=== PATIENT | female | born 1980 ===

== ENCOUNTER 2016-11-11 10:04 | Emergency (ER) | payer OTHER ==
[2016-11-11 10:04] VITALS: BMI 34.9
[2016-11-11 10:17] VITALS: BP 117/81; PULSE 83; RESP 19; TEMP 98.3; O2SAT 100
--- NOTE | 2016-11-11 11:03 | C.PDOC ---
History Of Present Illness 36 Y/O FEMALE C/O ABSCESS TO LEFT ARMPIT FOR 1 WEEK. PT REPORTS INCREASED SWELLING AND REDNESS. DENIES DISCHARGE OR FEVER. PT NOTES SHE HAS HAD MULTIPLE ABSCESSES ON HER BODY IN THE LAST SEVERAL MONTHS. EXAM SKIN: ABSCESS ANTERIOR TO LEFT AXILLA WITH SOME LOCAL CELLULITIS. REM NEG Time Seen by Provider: 11/11/16 10:57 Chief Complaint (Nursing): Abnormal Skin Integrity History Per: Patient History/Exam Limitations: no limitations Onset/Duration Of Symptoms: Days Current Symptoms Are (Timing): Still Present Quality Of Symptoms: Painful, Swollen. denies: Draining Recent travel outside of the [place]: No Past Medical History Reviewed: Historical Data, Nursing Documentation, Vital Signs Vital Signs: Last Vital Signs Temp 98.3 F 11/11/16 10:16 Pulse 83 11/11/16 10:16 Resp 19 11/11/16 10:16 BP 117/81 11/11/16 10:16 Pulse Ox 100 11/11/16 12:00 - Medical History PMH: No Chronic Diseases Family History: States: Unknown Family Hx - Social History Hx Alcohol Use: No Hx Substance Use: No - Immunization History Hx Tetanus Toxoid Vaccination: Yes Hx Influenza Vaccination: Yes Hx Pneumococcal Vaccination: Yes Review Of Systems Except As Marked, All Systems Reviewed And Found Negative. Constitutional: Negative for: Fever, Chills Skin: Positive for: Other (ABSCESS LEFT ARMPIT). Negative for: Rash Neurological: Negative for: Weakness, Numbness Physical Exam - Physical Exam Appears: Non-toxic, No Acute Distress Skin: Warm, Dry, Other (ABSCESS, ANTERIOR TO LEFT AXILLA WITH SOME LOCAL CELLULITIS. ) Head: Atraumatic, Normacephalic Chest: Symmetrical Cardiovascular: Rhythm Regular Respiratory: Normal Breath Sounds, No Rales, No Rhonchi, No Wheezing Gastrointestinal/Abdominal: Soft, No Tenderness Back: Normal Inspection Extremity: Normal ROM, Capillary Refill (< 2 SEC.) Neurological/Psych: Oriented x3, Normal Speech, Normal Cognition ED Course And Treatment O2 Sat by Pulse Oximetry: 100 (RA) Pulse Ox Interpretation: Normal - Incision & Drainage Of Abscess Anesthesia: Lidocaine 2%, With Epi Prep Used: Betadine Procedure: Incised W/Scalpel Blade#: (11), Drained Pus, Probed To Break Up Loculations, Packed W/Gauze Progress - Re-Evaluation Re-evaluation Note: 11/11/16 11:59 I&D PERFORMED BY ME. PT TOLERATED PROCEDURE WELL. STERILE DRESSING APPLIED. PT ADVIESD ON WOUND CARE AND INSTRUCTED TO FU WITH CLINIC/PMD FOR FURTHER EVALUATION. Disposition Counseled Patient/Family Regarding: Diagnosis, Need For Followup, Rx Given - Disposition Referrals: [facility] [Outside] [facility] [Outside] Disposition: HOME/ ROUTINE Disposition Time: 11:53 Condition: IMPROVED Additional Instructions: Retorno de 2 pablo para la retirada del empaque, reevalacin de la herida, posible reempaque de heridas Prescriptions: Sulfamethoxazole/Trimethoprim [Bactrim DS 800 mg-160 mg] 1 tab PO BID #14 tab Ibuprofen [Motrin] 600 mg PO Q6 #30 tab Instructions: Abscess Incision and Drainage (ED) Print Language: GUATEMALAN - Clinical Impression Clinical Impression: Abscess, Cellulitis - Scribe Statement The provider has reviewed the documentation as recorded by the Chi Bowers Provider Attestation: All medical record entries made by the Chi were at my direction and personally dictated by me. I have reviewed the chart and agree that the record accurately reflects my personal performance of the history, physical exam, medical decision making, and the department course for this patient. I have also personally directed, reviewed, and agree with the discharge instructions and disposition.
[2016-11-11] MEDS ORDERED: Lidocaine 2% Inj (20ml) INFIL ONE (11:19)
[2016-11-11] MEDS ORDERED: Lidocaine 2% Inj (20ml) ONE (11:25)
[2016-11-11] MEDS ORDERED: Lidocaine 2% w Epi 1:100,000 Inj IJ ONE (11:31)
[2016-11-11] MEDS ORDERED: Tmp-Smz 800 mg-160 mg DS Tab PO STA (11:55)
[2016-11-11] MEDS ORDERED: Tmp-Smz 800 mg-160 mg DS Tab ONE (12:06)
== END 2016-11-11 12:06 | disposition home or self-care (01) ==
LOC: C.ER 10:04
DX: L02.412 Cutaneous abscess of left axilla (principal); L03.112 Cellulitis of left axilla
CPT/HCPCS: 10060; 96372; 99284; J1885

== ENCOUNTER 2016-11-13 09:58 | Emergency (ER) | payer OTHER ==
[2016-11-13 09:59] VITALS: BMI 34.9
[2016-11-13 10:16] VITALS: BP 113/77; PULSE 78; RESP 12; TEMP 98.2; O2SAT 99
--- NOTE | 2016-11-13 11:14 | C.PDOC ---
History Of Present Illness 36 year old female presents to the ED for a wound check. Patient was seen 2 days ago for an abscess to her left axilla which was drained and packed. She is compliant with her medication and denies fever or any new complaints at this time. Chief Complaint (Nursing): Abnormal Skin Integrity History Per: Patient History/Exam Limitations: no limitations Onset/Duration Of Symptoms: Days Current Symptoms Are (Timing): Better Severity: Mild Past Medical History Reviewed: Historical Data, Nursing Documentation, Vital Signs Vital Signs: Last Vital Signs Temp 98.2 F 11/13/16 10:10 Pulse 78 11/13/16 10:10 Resp 12 11/13/16 10:10 BP 113/77 11/13/16 10:10 Pulse Ox 99 11/13/16 12:39 - Medical History PMH: No Chronic Diseases Family History: States: Unknown Family Hx - Social History Hx Alcohol Use: No Hx Substance Use: No - Immunization History Hx Tetanus Toxoid Vaccination: Yes Hx Influenza Vaccination: Yes Hx Pneumococcal Vaccination: Yes Review Of Systems Except As Marked, All Systems Reviewed And Found Negative. Constitutional: Negative for: Fever, Chills Cardiovascular: Negative for: Chest Pain Skin: Positive for: Other (Wound check to left axilla) Physical Exam - Physical Exam Appears: Non-toxic, No Acute Distress Skin: Warm, Dry, Other (+Healing wound to the left axilla with packing in place. +Abscess still indurated. No surrounding erythema) Head: Atraumatic, Normacephalic Eye(s): bilateral: Normal Inspection Oral Mucosa: Moist Neck: Supple Extremity: Normal ROM Neurological/Psych: Oriented x3, Normal Speech, Normal Cognition ED Course And Treatment O2 Sat by Pulse Oximetry: 99 (Room air) Pulse Ox Interpretation: Normal Progress Note: Packing removed and new packing placed. Patient advised to continue taking medication and follow up with her PMD or the ED in 2 days for wound check and packing removal. Disposition - Disposition Referrals: Kailyn Leyva, [Non-Staff] - Disposition: HOME/ ROUTINE Disposition Time: 10:40 Condition: GOOD Additional Instructions: Thank you for letting us take care of you today. Your provider was Dr. Cooney. You were treated for wound check. The emergency medical care you received today was directed at your acute symptoms. If you were prescribed any medication, please fill it and take as directed. It may take several days for your symptoms to resolve. Return to the Emergency Department if your symptoms worsen, do not improve, or if you have any other problems. Please contact your doctor or call one of the physicians/clinics you have been referred to that are listed on the Patient Visit Information form that is included in your discharge packet. Bring any paperwork you were given at discharge with you along with any medications you are taking to your follow up visit. Our treatment cannot replace ongoing medical care by a primary care provider (PCP) outside of the emergency department. Thank you for allowing the [facility] team to be part of your care today. Apply warm packs to the area as much as possible to allow it to drain. Follow up with your doctor or the emergency room in 2 days for a wound check. Continue taking the antibiotic as directed. Instructions: Abscess Follow-up (ED) Forms: Gen Discharge Inst Pashto Print Language: UZBEK - Clinical Impression Clinical Impression: Admission for wound check of abscess - Scribe Statement The provider has reviewed the documentation as recorded by the Buzzibmadonna Mccloud. Provider Attestation: All medical record entries made by the Chi were at my direction and personally dictated by me. I have reviewed the chart and agree that the record accurately reflects my personal performance of the history, physical exam, medical decision making, and the department course for this patient. I have also personally directed, reviewed, and agree with the discharge instructions and disposition.
== END 2016-11-13 10:55 | disposition home or self-care (01) ==
LOC: C.ER 09:58
DX: Z48.00 Encounter for change or removal of nonsurgical wound dressing (principal)